=== PATIENT | female | born 1995 | race Caucasian/White ===

== ENCOUNTER 2016-11-19 23:23 | Emergency (ER) | payer OTHER ==
[~2016-11-19] VITALS: Ht 160 cm; Wt 96.5 kg
[~2016-11-19 23:23] MED LIST: ACET500C5 PO; HYDR-3498 PO; IBUP-1542 PO; ONDA4TAB8 PO
[2016-11-20 00:23] VITALS: Ht 160 cm; Wt 96.5 kg
[2016-11-20] MEDS ORDERED: KETOROLAC 60 MG INJ IM STA (03:50)
[2016-11-20] MEDS ORDERED: predniSONE 20 MG TAB PO ONE (04:00)
[2016-11-20 04:08] LABS: URINE BLOOD (Dip) POC Negative (NEGATIVE)
--- NOTE | 2016-11-20 04:48 | RADRPT ---
PROCEDURE: LUMBAR SPINE - 3 VIEWS CLINICAL INDICATION: 21-year-old female with back pain. TECHNIQUE: AP, lateral and cone-down lateral view of the lumbar spine were obtained. The images we re reviewed on a PACS workstation. COMPARISON: CT abdomen/pelvis June 20, 2016. FINDINGS: There is mild dextroscoliosis. Otherwise, the lumbar vertebral bodies and disk spaces have normal h eights and anatomic alignment. No evidence of fracture or subluxation is seen. No significant spondy lolisthesis is seen. The partially visualized sacrum is unremarkable. The sacroiliac joints are inta ct. Surgical clips are seen within the right upper quadrant from prior cholecystectomy. There is an intrauterine device within the pelvis. There is retained stool within the ascending colon with air throughout the rest the partially visualized bowel without an obstructive pattern. IMPRESSION: 1. Mild dextroscoliosis. 2. Status post cholecystectomy. 3. Intrauterine device. 4. Retained stool. .Sergio Everett MD, MD Date Time Electronically viewed and signed by .Sergio Everett MD, on 11/20/2016 04:48 .M/
[2016-11-20] MEDS ORDERED: PRED20TA PO (04:51)
[2016-11-20] MEDS ORDERED: IBUP-1542 PO (04:51)
[2016-11-20] MEDS ORDERED: ORPH100T PO (04:51)
[2016-11-20 05:03] VITALS: BP 109/55; PULSE 58; RESP 18; TEMP 98.7
--- NOTE | 2016-11-21 10:07 | ERD ---
ER Documentation Chief Complaint Date/Time DATE: 11/21/16 TIME: 10:04 Chief Complaint lower back pain HPI This is a 21-year-old female presents to the ER with lower back pain that started yesterday. 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 Pain is worse whenever patient tries to straighten out. Patient has had back pain for a few months however this made it worse. Patient denies any urinary bowel incontinence. She denies any lower extremity weakness numbness or tingling. She denies any fevers or chills. ROS 12 point review of systems was done, all negative except per HPI. Medications Home Meds Active Scripts Orphenadrine Citrate (Norflex) 100 Mg Tablet.sa, 100 MG PO BID for 5 Days, TAB.SA Prov:MARIA LUISA HOUSTON 11/20/16 Prednisone* (Prednisone*) 20 Mg Tab, 60 MG PO DAILY for 4 Days, TAB Prov:MARIA LUISA HOUSTON 11/20/16 Ibuprofen* (Motrin*) 600 Mg Tab, 600 MG PO Q6, #30 TAB Prov:MARIA LUISA HOUSTON 11/20/16 Acetaminophen* (Tylophen*) 500 Mg Capsule, 1 CAP PO Q6H Y for PAIN AND OR ELEVATED TEMP, #30 CAP Prov:DOLLY NUÑEZ PA-C 06/20/16 Ondansetron Hcl* (Zofran*) 4 Mg Tablet, 4 MG PO Q6H for NAUSEA AND/OR VOMITING, #30 TAB Prov:DOLLY NUÑEZ PA-C 06/20/16 Ibuprofen* (Motrin*) 600 Mg Tab, 600 MG PO Q6, #30 TAB Prov:DOLLY NUÑEZ PA-C 06/20/16 Hydrocodone Bit-Acetaminophen* (Blackwood*) 5-325 Mg Tab, 1 TAB PO Q6H Y for PAIN, # 30 TAB Prov:KADEN NAPOLES NP 11/06/15 Allergies Allergies: Coded Allergies: No Known Allergy (Unverified , 11/01/15) PMhx/Soc History of Surgery: Yes (Cholecystectomy) Anesthesia Reaction: No Hx Neurological Disorder: No Hx Respiratory Disorders: No Hx Cardiac Disorders: No Hx Psychiatric Problems: No Hx Miscellaneous Medical Probl: Yes (Gallstones,Pancreatitis,IUD) Hx Alcohol Use: Yes (Social) Hx Substance Use: No Hx Tobacco Use: Yes Smoking Status: Light tobacco smoker Physical Exam Vitals Vital Signs Date Time Temp Pulse Resp B/P Pulse Ox O2 Delivery O2 Flow Rate FiO2 11/20/16 05:03 98.7 58 18 109/55 100 Room Air 11/20/16 00:23 98.3 75 18 107/52 98 Physical Exam GENERAL: The patient is well developed and appropriate for usual state of health , in no apparent distress. NECK: C-spine is soft and supple. There is no cervical lymphadenopathy. CHEST: Clear to auscultation bilaterally. There are no rales, wheezes or rhonchi. HEART: Regular rate and rhythm. No murmurs, clicks, rubs or gallops. ABDOMEN: Soft, nontender and nondistended. Good bowel sounds. No rebound or guarding. No gross peritonitis. No gross organomegaly or masses. No Ring sign or McBurney point tenderness. No pulsatile abdominal mass. BACK: No midline or flank tenderness. Tender to palpation from L3-L5. Tense paraspinal muscles. Negative leg raise test. No step- offs. EXTREMITIES: Equal pulses bilaterally. There is no peripheral clubbing, cyanosis or edema. No focal swelling or erythema. Full range of motion. Grossly neurovascularly intact. NEURO: Alert and oriented. Cranial nerves II through XII are intact. Motor strength in all 4 extremities with 5/5 strength. Sensation grossly intact. Normal speech and gait. SKIN: There is no apparent rash or petechia. The skin is warm and dry. Results 24 hrs Laboratory Tests Test 11/20/16 04:09 Bedside Urine Blood Negative Bedside Urine Glucose (UA) Negative Bedside Urine Ketones (LAB) Negative Bedside Urine Leukocyte Esterase (L Negative Bedside Urine Nitrite (LAB) Positive Bedside Urine Protein (LAB) 1+ Bedside Urine pH (LAB) 7.0 Current Medications Medications (Trade) Dose Ordered Sig/Scott Route PRN Reason Start Time Stop Time Status Last Admin Dose Admin Ketorolac Tromethamine (Toradol) 60 mg ONCE STAT IM 11/20/16 03:50 11/20/16 03:52 DC 11/20/16 04:06 Prednisone (Prednisone) 60 mg ONCE ONCE PO 11/20/16 04:00 11/20/16 04:01 DC 11/20/16 04:06 Procedures/MDM Differential Diagnosis includes but is not limited to back strain, vertebral fracture, epidural abscess, cauda equina, herniated disc, AAA rupture, kidney stones, UTI, pyelonephritis. Patient has a benign physical examination and is neurovascularly intact to her lower extremities. Afebrile and well-appearing. I doubt cauda equina. I doubt infectious process. Patient was given Toradol and prednisone here in the ER. She states she felt a little bit better after Toradol. She'll be sent home with ibuprofen, Norflex, prednisone. This is likely a back strain. His symptoms continued patient should see an orthopedic doctor to obtain an MRI as I cannot rule out disc protrusion herniated disc at this time. She needs to follow up with her primary care doctor within 1-2 days return to ER sooner symptoms worsen. Should with patient and agrees with plan. Departure Diagnosis: Primary Impression: Back pain Condition: Stable Patient Instructions: Back Pain (Acute Or Chronic) Additional Instructions: Call your primary care doctor TOMORROW for an appointment during the next 1-2 days.See the doctor sooner or return here if your condition worsens before your appointment time. MARIA LUISA HOUSTON Nov 21, 2016 10:07
== END 2016-11-20 05:15 | disposition home or self-care (01) ==
LOC: FTE 23:23
DX: S39.92XA Unspecified injury of lower back, initial encounter (principal); F17.210 Nicotine dependence, cigarettes, uncomplicated; X50.0XXA Overexertion from strenuous movement or load, initial encounter; Y92.9 Unspecified place or not applicable
CPT/HCPCS: 72100; 81003; 96372; J1885; J7512; Z7502